=== PATIENT | male | born 1980 | race Caucasian/White ===

== ENCOUNTER 2018-02-10 05:57 | Emergency (ER) | payer MEDICAID, OTHER ==
[~2018-02-10] VITALS: Ht 188 cm; Wt 85.0 kg
[~2018-02-10 05:57] MED LIST: CYCL-1 PO; DOCU-28 PO; MECL-111 PO; NO HOME MEDS; SENN25TA27 PO
[2018-02-10 07:23] LABS: CLARITY,URINE CLEAR (Clear); COLOR,URINE YELLOW (Yellow); GLUCOSE, URINE NEGATIVE (Neg); KETONES,URINE NEGATIVE (Neg); LEUKOCYTE ESTERASE ,URINE NEGATIVE (Neg); NITRITES, URINE NEGATIVE (Neg); OCCULT BLOOD,URINE NEGATIVE (Neg); PROTEIN,URINE NEGATIVE (Neg); UROBILINOGEN,URINE 0.2 E.U/dL (0.2-1.0)
[2018-02-10 07:39] LABS: UA COLLECTION TYPE CLN CATCH MIDSTREAM
[2018-02-10 08:07] VITALS: BP 135/79
== END 2018-02-10 08:48 | disposition home or self-care (01) ==
LOC: ER 05:58
DX: N43.2 Other hydrocele (principal); N50.812 Left testicular pain; F12.10 Cannabis abuse, uncomplicated; Z87.442 Personal history of urinary calculi; Z98.890 Other specified postprocedural states; Z79.899 Other long term (current) drug therapy
CPT/HCPCS: 76870; 81003; 99285

== ENCOUNTER 2019-11-02 06:19 | Emergency (ER) | payer MEDICAID ==
[~2019-11-02] VITALS: Ht 185.4 cm; Wt 79.5 kg
[2019-11-02 06:22] VITALS: BP 134/71
== END 2019-11-02 06:43 | disposition home or self-care (01) ==
LOC: ER 06:20
DX: K12.0 Recurrent oral aphthae (principal); F12.90 Cannabis use, unspecified, uncomplicated; Z98.890 Other specified postprocedural states; Z79.899 Other long term (current) drug therapy
CPT/HCPCS: 99281

== ENCOUNTER 2021-10-22 07:06 | Emergency (ER) | payer MEDICAID ==
[~2021-10-22] VITALS: Ht 185.4 cm; Wt 79.5 kg
[~2021-10-22 07:06] MED LIST changes: -MECL-111 PO; +MECL-159 PO
[2021-10-22 07:20] VITALS: BP 135/83
[2021-10-22] MEDS ORDERED: TETanus/Pertussis (Acell)/Diphther VAC/PF (Tdap-Adult) 0.5ml syringe IMVAC ONE (07:40)
[2021-10-22] MEDS ORDERED: CHLO473M2 PO (08:25)
[2021-10-22] MEDS ORDERED: AMOX500C2 PO (08:25)
[2021-10-22] MEDS ORDERED: HYDR-3965 PO (08:25)
[2021-10-22] MEDS ORDERED: LIDOcaine/epinephrine/tetracaine TOPICAL sol 3 ML syringe TOP ONE (08:30)
[2021-10-22] MEDS ORDERED: LIDOcaine 1% w/epiNEPHrine 1:200,000 30ml vial IJ ONE (08:30)
[2021-10-22] MEDS ORDERED: LIDOcaine 1% W/epiNEPHrine 1:200,000 10ml vial IJ ONE (08:30)
[2021-10-22] MEDS ORDERED: HYDROcodone/acetaminophen 10/325mg tab PO ONE ×2 (08:30→10:30)
== END 2021-10-22 11:41 | disposition home or self-care (01) ==
LOC: ER 07:06
DX: S01.511A Laceration without foreign body of lip, initial encounter (principal); S09.93XA Unspecified injury of face, initial encounter; F12.90 Cannabis use, unspecified, uncomplicated; Z87.442 Personal history of urinary calculi; Z98.890 Other specified postprocedural states; Z72.89 Other problems related to lifestyle; Z79.2 Long term (current) use of antibiotics; Z79.899 Other long term (current) drug therapy; Z20.3 Contact with and (suspected) exposure to rabies; W19.XXXA Unspecified fall, initial encounter; Y93.89 Activity, other specified; Y92.89 Other specified places as the place of occurrence of the external cause; Y99.8 Other external cause status
CPT/HCPCS: 12011; 90471; 90715; 99283

== ENCOUNTER 2022-04-30 20:00 | Emergency (ER) | payer MEDICAID ==
[~2022-04-30] VITALS: Ht 185.4 cm; Wt 81.8 kg
[~2022-04-30 20:00] MED LIST changes: +CHLO473M2 PO
[2022-04-30] MEDS ORDERED: CefTRIAXone 1000mg IM Kit (w/lidocaine diluent) IM STA (20:48)
[2022-04-30] MEDS ORDERED: DOXYCYCLINE 100MG CAPSULE PO ONE (20:50)
[2022-04-30] MEDS ORDERED: DOXY100C76 PO (21:09)
[2022-04-30 21:20] VITALS: BP 130/74
[2022-04-30 21:39] LABS: CLARITY,URINE CLEAR (Clear); COLOR,URINE YELLOW (Yellow); GLUCOSE, URINE NEGATIVE (Neg); KETONES,URINE NEGATIVE (Neg); LEUKOCYTE ESTERASE ,URINE NEGATIVE (Neg); NITRITES, URINE NEGATIVE (Neg); OCCULT BLOOD,URINE NEGATIVE (Neg); PROTEIN,URINE NEGATIVE (Neg); UA COLLECTION TYPE CLN CATCH MIDSTREAM; UROBILINOGEN,URINE 0.2 E.U/dL (0.2-1.0)
== END 2022-04-30 21:22 | disposition home or self-care (01) ==
LOC: ER 20:02
DX: A54.9 Gonococcal infection, unspecified (principal); F12.10 Cannabis abuse, uncomplicated; Z87.442 Personal history of urinary calculi; Z79.899 Other long term (current) drug therapy
CPT/HCPCS: 36415; 81003; 87491; 87591; 96372; 99283; J0696

== ENCOUNTER 2023-01-03 23:55 | Emergency (ER) | payer MEDICAID ==
[~2023-01-03] VITALS: Ht 188 cm; Wt 81.8 kg
[2023-01-04 00:16] VITALS: BP 142/95
[2023-01-04] MEDS ORDERED: HYDROcodone/acetaminophen 5mg/325mg tablet PO ONE (02:20)
[2023-01-04] MEDS ORDERED: ondansetron 4mg rapidly disintigrating tab PO ONE (02:20)
[2023-01-04] MEDS ORDERED: LIDOcaine/epinephrine/tetracaine TOPICAL sol 3 ML syringe TOP ONE (03:30)
[2023-01-04] MEDS ORDERED: bacitracin 15gm ointment TP ONE (03:30)
--- NOTE | 2023-01-04 05:00 | NUR ---
wound cleaned with 100ml nacl and wound clenz. lac repair with x4 steri strips.
== END 2023-01-04 05:02 | disposition home or self-care (01) ==
LOC: ER 23:56
DX: S82.891A Other fracture of right lower leg, initial encounter for closed fracture (principal); F12.90 Cannabis use, unspecified, uncomplicated; W01.0XXA Fall on same level from slipping, tripping and stumbling without subsequent striking against object, initial encounter; Y93.89 Activity, other specified; Y92.89 Other specified places as the place of occurrence of the external cause; Y99.8 Other external cause status
CPT/HCPCS: 29515; 70450; 70486; 73610; 99284; J3490; A6449

== ENCOUNTER 2024-07-20 14:09 | Emergency (ER) | payer MEDICAID ==
[~2024-07-20] VITALS: Ht 188 cm; Wt 78.7 kg
[~2024-07-20 14:09] MED LIST changes: +IBUP-1984 PO; -MECL-159 PO; +MECL-302 PO
[2024-07-20] MEDS ORDERED: CEPH500C2 PO (15:56)
[2024-07-20] MEDS ORDERED: GABA300C PO (15:57)
[2024-07-20] MEDS: ketorolac trometh 30MG/ML vial 30 MG/ML VIAL IM ONE (16:56)
[2024-07-20 17:03] VITALS: BP 128/71; PULSE 70; RESP 16; TEMP 98.7; O2SAT 97
== END 2024-07-20 16:58 | disposition home or self-care (01) ==
LOC: ER 14:09
DX: S42.301D Unspecified fracture of shaft of humerus, right arm, subsequent encounter for fracture with routine healing (principal); L03.113 Cellulitis of right upper limb; W14.XXXD Fall from tree, subsequent encounter
CPT/HCPCS: 96372; 99284; A6222; J1885; 29105; A6402

== ENCOUNTER 2024-11-29 02:35 | Emergency (ER) | payer MEDICAID ==
[~2024-11-29] VITALS: Ht 188 cm; Wt 80.7 kg
[~2024-11-29 02:35] MED LIST changes: +GABA300C PO; -IBUP-1984 PO
[2024-11-29 03:48] VITALS: TEMP 98.8
[2024-11-29] MEDS: adenosine 3mg/ml 2ml vial IV ONE ×2 (04:11→04:37)
[2024-11-29 04:13] LABS: BASOPHILS # (AUTO) 0.1 X10'3 (0-0.2); BASOPHILS % (AUTO) 0.4 % (0-1); EOSINOPHILS % (AUTO) 0.2 % (0-6); HEMATOCRIT 39.9 % (42.0-52.0); HEMOGLOBIN 13.4 g/dl (14.0-17.9); LYMPHOCYTES # (AUTO) 1.9 X10'3 (1.1-4.8); LYMPHOCYTES % (AUTO) 9.1 % (21-51); MEAN CORPUSCULAR HEMOGLOBIN 29.6 PG (27.0-31.0); MEAN CORPUSCULAR HGB CONC 33.5 g/dL (33.0-36.5); MEAN CORPUSCULAR VOLUME 88.2 FL (78-98); MEAN PLATELET VOLUME 7.6 FL (7.4-10.4); MONOCYTES # (AUTO) 1.4 X10'3 (0-0.9); MONOCYTES % (AUTO) 6.6 % (2-12); NEUTROPHILS # (AUTO) 17.4 X10'3 (1.8-7.7); NEUTROPHILS % (AUTO) 83.7 % (42-75); PLATELET COUNT 373 X10'3 (140-440); RED BLOOD COUNT 4.53 X10'6 (4.70-6.10); RED CELL DISTRIBUTION WIDTH 13.9 % (11.5-14.5); WHITE BLOOD COUNT 20.8 X10'3 (4.5-11.0)
[2024-11-29] MEDS: magnesium sulf-water 2g/50mL 50 ML IV ONE (04:16)
[2024-11-29 04:26] LABS: ALANINE AMINOTRANSFERASE 54 U/L (12-78); ALBUMIN/GLOBULIN RATIO 0.8 (1.1-1.5); ALKALINE PHOSPHATASE 121 IU/L (46-116); ANION GAP 9 (8-16); ASPARTATE AMINO TRANSFERASE 25 U/L (10-37); BILIRUBIN,TOTAL 0.2 MG/DL (0.1-1.0); BLOOD UREA NITROGEN 14 MG/DL (7-18); BUN/CREATININE RATIO 16.7 (10.0-20.0); CALCIUM 8.4 MG/DL (8.5-10.1); CHLORIDE 103 MMOL/L (99-107); CREATININE 0.84 MG/DL (0.60-1.10); GLUCOSE 130 MG/DL (70-104); POTASSIUM 3.7 MMOL/L (3.5-5.1); SODIUM 137 MMOL/L (135-145); TOTAL CARBON DIOXIDE 25.4 MMOL/L (24-32); TOTAL PROTEIN 6.9 G/DL (6.4-8.2); eCRCL 129 ML/MIN; eGFR > 90 ML/MIN
[2024-11-29 04:34] LABS: MAGNESIUM 1.6 MG/DL (1.5-2.4); PRO BRAIN NATRIURETIC PEPTIDE 190 PG/ML (0-125)
[2024-11-29] MEDS: normal saline 1000ML IV soln IVB ONE (04:38)
[2024-11-29 05:25] VITALS: BP 122/78; PULSE 95; RESP 17; O2SAT 94
== END 2024-11-29 05:25 | disposition home or self-care (01) ==
LOC: ER 02:36
DX: J02.9 Acute pharyngitis, unspecified (principal); I47.10 Supraventricular tachycardia, unspecified; R94.31 Abnormal electrocardiogram [ECG] [EKG]; F12.90 Cannabis use, unspecified, uncomplicated; Z87.442 Personal history of urinary calculi; Z98.890 Other specified postprocedural states
CPT/HCPCS: 36415; 80053; 83735; 83880; 84484; 85025; 87502; 87503; 93005; 96365; 96366; 96375; 99291; J0153; J3475; J7030

== ENCOUNTER 2024-12-01 07:10 | Emergency (ER) | payer MEDICAID ==
[~2024-12-01] VITALS: Ht 188 cm; Wt 79.9 kg
[2024-12-01 08:27] LABS: STREP A SCREEN POSITIVE (Neg)
[2024-12-01] MEDS: PENICILLIN G BENZATHINE 2,400,000 UNIT/4 ML SYRINGE IM ONE (09:06)
[2024-12-01 09:10] VITALS: BP 129/73; PULSE 88; RESP 16; TEMP 98.4; O2SAT 100
== END 2024-12-01 09:11 | disposition home or self-care (01) ==
LOC: ER 07:10
DX: J02.0 Streptococcal pharyngitis (principal); F12.90 Cannabis use, unspecified, uncomplicated; Z98.890 Other specified postprocedural states; Z87.442 Personal history of urinary calculi
CPT/HCPCS: 87880; 96372; 99283; J0561